=== PATIENT | female | born 1985 | race American Indian/Alaskan Native ===

== ENCOUNTER 2018-01-23 17:23 | Outpatient (CLI) | payer OTHER | END 2018-01-23 17:50 | disposition home or self-care (01) | LOC: TRG 17:23 | PROVIDERS: ATTEND Obstetrics & Gynecology | DX: O36.0930 Maternal care for other rhesus isoimmunization, third trimester, not applicable or unspecified (principal); Z3A.34 34 weeks gestation of pregnancy; Z88.1 Allergy status to other antibiotic agents | CPT/HCPCS: 86850; 86900; 86901; 96372; J2790 ==